=== PATIENT | female | born 1995 | race Caucasian/White ===

== ENCOUNTER 2016-10-12 17:33 | Emergency (ER) | payer OTHER ==
--- NOTE | ~2016-10-12 | CT2 ---
[facility] A Service of [facility] RADIOLOGY TEXT RESULTS PATIENT: JOVANNA BOSE LOCATION: SED : [birth year] UNIT #: [id number] AGE: [address]: Teressa Schmidt COVER CUTTER INSIDE ACCOUNT REPRESENTATIVE SEX: F ORDER DR: [id number] [address] [address] [id number] MR#: [id number] #: [id number] NAME: JOVANNA BOSE : 1995 SEX: F STUDY DATE/TIME: 10/12/2016 17:41 UNIT: SED ROOM: STUDY DESCRIPTION: CT Abd and Pelv W Cont Attending Physician: Teressa Schmidt A.P.R.N. Ordering Physician: Teressa Schmidt A.P.R.N. Primary Care Physician: No Primary Care Physician MEDICAL IMAGING REPORT This report is preliminary unless electronic signature is present. EXAM CT of abdomen and pelvis with IV contrast. COMPARISON None. INDICATION 21-year-old female with right side abdominal pain, nausea and emesis for [address] exam was performed with one or more of the following radiation dose reduction techniques: automatic exposure control, adjustment of mA and/or kV according to patient size, and iterative reconstruction. FINDINGS Axial CT imaging of the abdomen and pelvis was performed after IV administration of 100 mL of Isovue-370. Coronal and sagittal reformats were constructed. No acute fractures or suspicious osseous lesions. Small posterior disc protrusion L5-S1, perhaps clinically insignificant. Lower chest unremarkable. Hypoattenuation of the liver, which may reflect steatosis. The pancreas, adrenal glands, spleen, ureters, kidneys, urinary bladder and uterus are within normal limits. Hypoattenuating lesion of right ovary measuring 2.1 cm, either a fluid cyst or a dermoid cyst of the right ovary. There is trace amount of free fluid in pelvis, likely physiologic. Normal gallbladder. No bowel obstruction. No significant ascites. No pneumoperitoneum. Normal caliber of the abdominal aorta, with patency of its main branches. No evidence of venous thrombosis. No adenopathy. IMPRESSION [facility] A Service of [facility] RADIOLOGY TEXT RESULTS PATIENT: JOVANNA BOSE LOCATION: SED : [birth year] UNIT #: [id number] AGE: [address]: Teressa Schmidt APRN INSIDE ACCOUNT REPRESENTATIVE SEX: F ORDER DR: 1. No acute findings in the abdomen, pelvis or imaged lower chest. 2. 2.1 cm cyst versus dermoid of the right ovary. Trace free fluid in the pelvis, likely physiologic. 3. Hypoattenuation of the liver which may reflect steatosis. No evidence of cirrhosis. 4. Small posterior disc protrusion L5-S1, perhaps clinically insignificant. Dictated by... Rakesh Meyer M.D. THIS IS AN ELECTRONICALLY VERIFIED REPORT Rakesh Meyer M.D. at 10/14/2016 4:30 PM Bart TD: 10/12/2016 19:15 JOB #: [id number] MEDICAL IMAGING REPORT Page 1 of 1
[2016-10-12 16:47] LABS: URINE SOURCE CLEAN CATCH
[2016-10-12 16:51] LABS: URINE APPEARANCE CLEAR; URINE BILIRUBIN NEG (NEG); URINE BLOOD NEG (NEG); URINE COLOR YELLOW; URINE GLUCOSE NEG (NORM); URINE KETONE NEG (NEG); URINE LEUKOCYTE ESTERASE TRACE (NEG); URINE NITRATE NEG (NEG); URINE PROTEIN NEG (NEG); URINE SPECIFIC GRAVITY <=1.005 (1.003-1.035); URINE UROBILINOGEN 0.2 MG/DL (NORM)
[2016-10-12 16:54] LABS: MICRO INDICATED? YES
[2016-10-12 17:26] LABS: URINE BACTERIA NEG (NEG); URINE RBC 0-2 /[HPF] (0-2); URINE SQUAMOUS EPITHELIAL CELL FEW /[HPF]; URINE WBC 0-2 /[HPF] (0-5)
[2016-10-12 17:26] LABS: BASOPHIL% 0.6 % (0-2.5); EOSINOPHIL% 0.2 % (0.0-7.0); HEMATOCRIT 46.1 % (35.0-45.0); HEMOGLOBIN 15.5 gm/dL (12.0-16.0); LYMPHOCYTE# 1.9 X10e3 (1.0-3.5); LYMPHOCYTE% 33.3 % (17.0-45.0); MEAN CELL VOLUME 89.1 FL (83-96); MEAN CORPUSCULAR HEMOGLOBIN 29.9 PG (28-34); MEAN CORPUSCULAR HGB CONC 33.6 g/dL (30-36); MEAN PLATELET VOLUME 10.9 FL (6.5-11.5); MONOCYTE# 0.4 X10e3 (0-1.0); MONOCYTE% 6.5 % (3.0-12.0); NEUTROPHIL# 3.3 X10e3 (1.5-7.1); NEUTROPHIL% 59.4 % (40-75); PLATELET COUNT 175 X10e3 (140-420); RED BLOOD COUNT 5.17 X10e (3.90-5.30); RED CELL DISTRIBUTION WIDTH 13.4 % (11.0-15.5); WHITE BLOOD COUNT 5.6 X10e3 (4.0-10.5)
[2016-10-12 17:28] LABS: DIFF IND NO
[~2016-10-12 17:33] MED LIST: LEVO-T25 MCG; PRILOSEC2.5 MG; ZOLOFT
[2016-10-12 17:49] LABS: ALBUMIN SERUM 4.7 g/dL (3.5-5.0); BILIRUBIN,TOTAL 0.6 mg/dL (0.2-2.0); BUN/CREATININE RATIO 11.25; CALCIUM SERUM 9.5 mg/dL (8.4-10.2); CREATININE SERUM 0.8 mg/dL (0.6-1.4); GLOM FILT RATE Estimated 104.7 mL/min (>60); POTASSIUM 3.4 mmol/L (3.5-5.1); PROTEIN TOTAL SERUM 8.3 g/dL (6.0-8.3)
== END 2016-10-12 18:31 | disposition home or self-care (01) ==
LOC: SED 17:33
PROVIDERS: Nurse Practitioner
DX: R10.31 Right lower quadrant pain (principal); M51.27 Other intervertebral disc displacement, lumbosacral region; E03.9 Hypothyroidism, unspecified
CPT/HCPCS: 36415; 74177; 80053; 81003; 84703; 85025; 96361; 96374; 96375; 99284; J2270; J2405; Q9967

== ENCOUNTER 2016-10-18 16:45 | Emergency (ER) | payer OTHER ==
[2016-10-18] MEDS ORDERED: PRENATAL MULTI1 EAC3 (17:03)
[2016-10-18 17:55] LABS: BASOPHIL% 0.6 % (0-2.5); EOSINOPHIL% 0.1 % (0.0-7.0); HEMATOCRIT 43.2 % (35.0-45.0); HEMOGLOBIN 14.8 gm/dL (12.0-16.0); MEAN CELL VOLUME 88.5 FL (83-96); MEAN CORPUSCULAR HEMOGLOBIN 30.4 PG (28-34); MEAN CORPUSCULAR HGB CONC 34.4 g/dL (30-36); MEAN PLATELET VOLUME 10.7 FL (6.5-11.5); MONOCYTE# 0.1 X10e3 (0-1.0); MONOCYTE% 2.6 % (3.0-12.0); NEUTROPHIL# 4.6 X10e3 (1.5-7.1); NEUTROPHIL% 79.7 % (40-75); PLATELET COUNT 160 X10e3 (140-420); RED BLOOD COUNT 4.88 X10e (3.90-5.30); RED CELL DISTRIBUTION WIDTH 13.1 % (11.0-15.5); WHITE BLOOD COUNT 5.7 X10e3 (4.0-10.5)
[2016-10-18 17:57] LABS: DIFF IND NO
[2016-10-18 18:20] LABS: ALBUMIN SERUM 4.6 g/dL (3.5-5.0); BILIRUBIN, DIRECT 0.1 mg/dL (0.0-0.2); BILIRUBIN,INDIRECT 0.4 mg/dL (0.0-0.9); BILIRUBIN,TOTAL 0.5 mg/dL (0.2-2.0); BUN/CREATININE RATIO 13.75; CALCIUM SERUM 9.8 mg/dL (8.4-10.2); CREATININE SERUM 0.8 mg/dL (0.6-1.4); GLOM FILT RATE Estimated 104.7 mL/min (>60); POTASSIUM 4.2 mmol/L (3.5-5.1); PROTEIN TOTAL SERUM 8.2 g/dL (6.0-8.3)
[2016-10-18 18:20] LABS: URINE SOURCE CLEAN CATCH
[2016-10-18 18:23] LABS: URINE APPEARANCE CLEAR; URINE BILIRUBIN NEG (NEG); URINE BLOOD NEG (NEG); URINE COLOR YELLOW; URINE GLUCOSE NEG (NORM); URINE KETONE NEG (NEG); URINE LEUKOCYTE ESTERASE NEG (NEG); URINE NITRATE NEG (NEG); URINE PH 6.5 (5-8); URINE PROTEIN NEG (NEG); URINE UROBILINOGEN 0.2 MG/DL (NORM)
[2016-10-18 18:24] LABS: MICRO INDICATED? NO
== END 2016-10-18 18:55 | disposition home or self-care (01) ==
LOC: SED 16:45
PROVIDERS: Emergency Medicine
DX: K92.2 Gastrointestinal hemorrhage, unspecified (principal)
CPT/HCPCS: 36415; 80048; 80076; 81003; 84703; 85025; 96361; 96374; 96375; 99284; C9113; J2405

== ENCOUNTER 2016-11-23 15:48 | Emergency (ER) | payer OTHER ==
[~2016-11-23 15:48] MED LIST changes: +PRENATAL MULTI1 EAC3
[2016-11-23 16:00] LABS: URINE SOURCE CLEAN CATCH
[2016-11-23 16:05] LABS: URINE BLOOD TRACE-INTACT (NEG); URINE GLUCOSE 50 MG/DL (NORM); URINE KETONE TRACE (NEG); URINE LEUKOCYTE ESTERASE 3+ (NEG); URINE NITRATE POS (NEG); URINE PROTEIN 1+ (NEG)
[2016-11-23 16:06] LABS: MICRO INDICATED? YES; URINE APPEARANCE SL HAZY; URINE BILIRUBIN NEG (NEG); URINE COLOR ORANGE
[2016-11-23 16:14] LABS: CULTURE INDICATED? YES; URINE BACTERIA 1+ (NEG)
[2016-11-23 16:15] LABS: URINE MUCUS PRESENT; URINE SQUAMOUS EPITHELIAL CELL FEW /[HPF]
[2016-11-27 15:44] LABS: CHLAMYDIA TRACH Not Detected (Not Detected); N GONOR Not Detected (Not Detected)
== END 2016-11-23 16:58 | disposition home or self-care (01) ==
LOC: SED 15:48
PROVIDERS: Nurse Practitioner
DX: N30.00 Acute cystitis without hematuria (principal); E03.9 Hypothyroidism, unspecified; K21.9 Gastro-esophageal reflux disease without esophagitis
CPT/HCPCS: 81003; 84703; 87086; 87210; 87491; 87591; 87808; 87905; 99284

== ENCOUNTER 2016-12-31 17:20 | Emergency (ER) | payer OTHER ==
[2016-12-31 17:56] LABS: URINE SOURCE CLEAN CATCH
[2016-12-31 18:00] LABS: URINE APPEARANCE CLEAR; URINE BILIRUBIN NEG (NEG); URINE BLOOD NEG (NEG); URINE COLOR YELLOW; URINE GLUCOSE NEG (NORM); URINE KETONE NEG (NEG); URINE LEUKOCYTE ESTERASE 1+ (NEG); URINE NITRATE NEG (NEG); URINE PROTEIN NEG (NEG); URINE SPECIFIC GRAVITY 1.025 (1.003-1.035); URINE UROBILINOGEN 0.2 MG/DL (NORM)
[2016-12-31 18:02] LABS: BASOPHIL% 0.6 % (0-2.5); EOSINOPHIL% 0.5 % (0.0-7.0); HEMOGLOBIN 13.5 gm/dL (12.0-16.0); LYMPHOCYTE# 2.2 X10e3 (1.0-3.5); LYMPHOCYTE% 34.2 % (17.0-45.0); MONOCYTE# 0.5 X10e3 (0-1.0); NEUTROPHIL# 3.6 X10e3 (1.5-7.1); WHITE BLOOD COUNT 6.4 X10e3 (4.0-10.5)
[2016-12-31 18:05] LABS: MICRO INDICATED? YES
[2016-12-31 18:06] LABS: HEMATOCRIT 39.3 % (35.0-45.0); MEAN CELL VOLUME 89.5 FL (83-96); MEAN CORPUSCULAR HEMOGLOBIN 30.7 PG (28-34); MEAN CORPUSCULAR HGB CONC 34.3 g/dL (30-36); MEAN PLATELET VOLUME 10.5 FL (6.5-11.5); MONOCYTE% 7.8 % (3.0-12.0); NEUTROPHIL% 56.9 % (40-75); PLATELET COUNT 192 X10e3 (140-420); RED BLOOD COUNT 4.39 X10e (3.90-5.30); RED CELL DISTRIBUTION WIDTH 12.9 % (11.0-15.5)
[2016-12-31 18:07] LABS: DIFF IND NO
[2016-12-31 18:11] LABS: CULTURE INDICATED? YES; URINE BACTERIA 1+ (NEG); URINE MUCUS PRESENT; URINE SQUAMOUS EPITHELIAL CELL FEW /[HPF]
[2016-12-31 18:26] LABS: ALBUMIN SERUM 4.3 g/dL (3.5-5.0); ALKALINE PHOSPHATASE 66 U/L (32-92); ALT (SGPT) 47 U/L (10-40); AMYLASE 21 U/L (0-46); AST (SGOT) 36 U/L (10-42); BILIRUBIN, DIRECT <0.1 mg/dL (0.0-0.2); BILIRUBIN,INDIRECT 0.1 mg/dL (0.0-0.9); BILIRUBIN,TOTAL 0.2 mg/dL (0.2-2.0); BLOOD UREA NITROGEN 10 mg/dL (9-23); CALCIUM SERUM 9.3 mg/dL (8.4-10.2); CARBON DIOXIDE 27 mmol/L (22-31); CHLORIDE 108 mmol/L (100-111); CREATININE SERUM 0.8 mg/dL (0.6-1.4); GLOM FILT RATE Estimated 104.7 mL/min (>60); GLUCOSE FASTING 85 mg/dL (70-110); LIPASE 32 U/L (22-51); POTASSIUM 4.1 mmol/L (3.5-5.1); PROTEIN TOTAL SERUM 7.4 g/dL (6.0-8.3); SODIUM 136 mmol/L (135-145)
== END 2016-12-31 19:22 | disposition home or self-care (01) ==
LOC: SED 17:20
PROVIDERS: Emergency Medicine
DX: O23.41 Unspecified infection of urinary tract in pregnancy, first trimester (principal); K52.9 Noninfective gastroenteritis and colitis, unspecified; E03.9 Hypothyroidism, unspecified; K21.9 Gastro-esophageal reflux disease without esophagitis; F32.9 Major depressive disorder, single episode, unspecified
CPT/HCPCS: 36415; 76817; 80048; 80076; 81003; 82150; 83690; 84702; 84703; 85025; 87086; 96360; 99284

== ENCOUNTER 2017-01-12 14:37 | Emergency (ER) | payer OTHER ==
[~2017-01-12] VITALS: Ht 157.5 cm; Wt 72.6 kg
[2017-01-12 15:51] LABS: BASOPHIL% 0.4 % (0-2.5); EOSINOPHIL% 0.2 % (0.0-7.0); HEMATOCRIT 38.2 % (35.0-45.0); HEMOGLOBIN 13.1 gm/dL (12.0-16.0); LYMPHOCYTE# 1.4 X10e3 (1.0-3.5); LYMPHOCYTE% 22.5 % (17.0-45.0); MEAN CORPUSCULAR HEMOGLOBIN 30.6 PG (28-34); MEAN CORPUSCULAR HGB CONC 34.4 g/dL (30-36); MEAN PLATELET VOLUME 10.4 FL (6.5-11.5); MONOCYTE# 0.4 X10e3 (0-1.0); MONOCYTE% 6.1 % (3.0-12.0); NEUTROPHIL# 4.5 X10e3 (1.5-7.1); NEUTROPHIL% 70.8 % (40-75); PLATELET COUNT 174 X10e3 (140-420); RED BLOOD COUNT 4.29 X10e (3.90-5.30); RED CELL DISTRIBUTION WIDTH 12.5 % (11.0-15.5); WHITE BLOOD COUNT 6.4 X10e3 (4.0-10.5)
[2017-01-12 15:56] LABS: DIFF IND NO
[2017-01-12 16:03] LABS: ALBUMIN SERUM 4.1 g/dL (3.5-5.0); BILIRUBIN, DIRECT 0.1 mg/dL (0.0-0.2); BILIRUBIN,INDIRECT 0.2 mg/dL (0.0-0.9); BILIRUBIN,TOTAL 0.3 mg/dL (0.2-2.0); BUN/CREATININE RATIO 11.25; CALCIUM SERUM 9.4 mg/dL (8.4-10.2); CREATININE SERUM 0.8 mg/dL (0.6-1.4); GLOM FILT RATE Estimated 104.7 mL/min (>60); POTASSIUM 3.8 mmol/L (3.5-5.1); PROTEIN TOTAL SERUM 7.2 g/dL (6.0-8.3)
[2017-01-12 16:46] LABS: URINE SOURCE CLEAN CATCH
[2017-01-12 16:52] LABS: URINE APPEARANCE SL CLOUDY; URINE BILIRUBIN NEG (NEG); URINE BLOOD NEG (NEG); URINE COLOR YELLOW; URINE GLUCOSE NEG (NORM); URINE KETONE NEG (NEG); URINE LEUKOCYTE ESTERASE 3+ (NEG); URINE NITRATE NEG (NEG); URINE PROTEIN NEG (NEG); URINE UROBILINOGEN 0.2 MG/DL (NORM)
[2017-01-12 16:56] LABS: MICRO INDICATED? YES
[2017-01-12 17:14] LABS: CULTURE INDICATED? YES; URINE BACTERIA 2+ (NEG); URINE RBC 0-2 /[HPF] (0-2); URINE SQUAMOUS EPITHELIAL CELL MANY /[HPF]; URINE WBC 25-50 /[HPF] (0-5)
== END 2017-01-12 18:58 | disposition home or self-care (01) ==
LOC: SED 14:37
PROVIDERS: Student in an Organized Health Care Education/Training Program
DX: O21.0 Mild hyperemesis gravidarum (principal); O99.341 Other mental disorders complicating pregnancy, first trimester; F31.9 Bipolar disorder, unspecified; E03.9 Hypothyroidism, unspecified; O99.281 Endocrine, nutritional and metabolic diseases complicating pregnancy, first trimester
CPT/HCPCS: 36415; 80048; 80076; 81003; 83690; 84703; 85025; 87086; 99284; J2550